=== PATIENT | female | born 1975 | race Two or more races ===

== ENCOUNTER 2019-03-23 21:09 | Emergency (ER) | payer OTHER ==
[2019-03-23] MEDS ORDERED: Ketorolac 60 MG/2 ML SDV IM ONE (21:33)
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
--- NOTE | 2019-03-23 22:18 | CR ---
2 views of the right knee. INDICATION: Injury IMPRESSION: No visualized fracture. Alignments anatomic. No additional osseous lesion. Mild joint space narrowing in the medial compartment. Dictated by Miguel Bernal MD @ Mar 23 2019 10:17PM Signed by Dr. Miguel Bernal @ Mar 23 2019 10:17PM
== END 2019-03-23 22:48 | disposition home or self-care (01) ==
LOC: MW.ED 21:09
DX: S89.91XA Unspecified injury of right lower leg, initial encounter (principal); S29.9XXA Unspecified injury of thorax, initial encounter; V48.6XXA Car passenger injured in noncollision transport accident in traffic accident, initial encounter
CPT/HCPCS: 71101; 73562; 96372; 99283; J1885